=== PATIENT | female | born 1985 | race African-American/Black ===

== ENCOUNTER 2016-10-09 05:30 | Emergency (ER) | payer OTHER ==
[2016-10-09 05:40] VITALS: BP 125/58
[2016-10-09 06:22] LABS: Urine Bacteria 1+ (Absent); Urine Bilirubin Negative (Negative); Urine Glucose Negative (Negative); Urine Nitrite Negative (Negative)
[2016-10-09] MEDS ORDERED: Phenazopyridine TAB* 100 MG PO ONE (06:23)
[2016-10-09] MEDS ORDERED: Sulfamethox/Trimethoprim DS 800/160* TAB PO ONE (06:23)
--- NOTE | 2016-10-09 06:31 | ED ---
Larry Snell Alfonso, scribed for Zach Medrano MD on 10/09/16 at 0540 . GI/ HPI - HPI Summary HPI Summary: This patient is a 31 year old female presenting [place] [facility] c/o an increased urinary frequency since 8 hours ago. The complaint woke her up 6 times tonight. She rates the pain 0/10 in severity. Symptoms aggravated and alleviated by nothing. She denies fever, N/V. The pt states a concern for UTI. - History of Current Complaint Chief Complaint: EDUrogenitalProblems Stated Complaint: FREQUENT URINATION Hx Obtained From: Patient Onset/Duration: Started Hours Ago - 8 hours, Still Present Timing: Constant Severity: Mild Current Severity: Mild Pain Intensity: 0 Associated Signs and Symptoms: Positive: UTI Symptoms - increased urinary frequency. Negative: Nausea, Vomiting, Fever Aggravating Factor(s): Nothing Alleviating Factor(s): Nothing - Allergy/Home Medications Allergies/Adverse Reactions: Allergies Allergy/AdvReac Type Severity Reaction Status Date / Time Latex Allergy Intermediate Rash Verified 05/05/16 12:26 PMH/Surg Hx/FS Hx/Imm Hx Endocrine/Hematology History: Denies: Hx Diabetes Cardiovascular History: Denies: Hx Hypertension, Hx Pacemaker/ICD History: Denies: Hx Renal Disease Sensory History: Denies: Hx Hearing Aid Psychiatric History: Denies: Hx Panic Disorder Infectious Disease History: Denies: Traveled Outside the [place] in Last 30 Days - Family History Known Family History: Negative: Cardiac Disease, Hypertension, Diabetes - Social History Alcohol Use: Rare Substance Use Type: Reports: None Smoking Status (MU): Light Every Day Tobacco Smoker Review of Systems Negative: Fever Negative: Vomiting, Nausea Positive: frequency - Increased All Other Systems Reviewed And Are Negative: Yes Physical Exam Triage Information Reviewed: Yes Vital Signs On Initial Exam: Initial Vitals Temp Pulse Resp BP Pulse Ox 97 F 89 18 132/70 97 10/09/16 05:31 10/09/16 05:31 10/09/16 05:31 10/09/16 05:31 10/09/16 05:31 Vital Signs Reviewed: Yes Appearance: Positive: Well-Appearing, No Pain Distress Skin: Positive: Warm Head/Face: Positive: Normal Head/Face Inspection ENT: Positive: Hearing grossly normal Neck: Positive: Supple, Nontender Respiratory/Lung Sounds: Positive: Clear to Auscultation, Breath Sounds Present Cardiovascular: Positive: RRR Abdomen Description: Positive: Nontender, No Organomegaly, Soft. Negative: CVA Tenderness (R), CVA Tenderness (L) Bowel Sounds: Positive: Present Musculoskeletal: Positive: Strength/ROM Intact Neurological: Positive: Alert, Oriented to Person Place, Time, Normal Gait Psychiatric: Positive: Affect/Mood Appropriate Diagnostics - Vital Signs Vital Signs Temp Pulse Resp BP Pulse Ox 10/09/16 05:31 97 F 89 18 132/70 97 - Laboratory Lab Results: Lab Results 10/09/16 Range/Units 05:45 Urine Color Yellow Urine Appearance Cloudy Urine pH 5.0 (5-9) Ur Specific [place] 1.027 (1.010-1.030) Urine Protein 2+(100 mg/dl) H (Negative) Urine Ketones 1+ H (Negative) Urine Blood 2+ H (Negative) Urine Nitrate Negative (Negative) Urine Bilirubin Negative (Negative) Urine Urobilinogen Negative (Negative) Ur Leukocyte Esterase 3+ H (Negative) Urine WBC (Auto) 3+(>20/hpf) H (Absent) Urine RBC (Auto) 3+(>10/hpf) H (Absent) Ur Squamous Epith Cells Present H (Absent) Urine Bacteria 1+ H (Absent) Urine Glucose Negative (Negative) Urine Test Pending Lab Statement: Any lab studies that have been ordered have been reviewed, and results considered in the medical decision making process. Re-Evaluation - Re-Evaluation First Eval Re-Evaluation Time: 06:30 Comment: results d/w pt GIGU Course/Dx - Diagnoses Provider Diagnoses: UTI (urinary tract infection) Discharge - Discharge Plan Condition: Stable Disposition: HOME Prescriptions: Phenazopyridine 200 mg (NF) [Pyridium 200 MG tab] 200 mg PO TID #5 tab Sulfamethox/Trimethoprim DS* [Bactrim DS 800/160 TAB*] 1 tab PO BID #14 tab Patient Education Materials: Urinary Tract Infection in Women (ED) Referrals: Fabian Ibarra MD [Primary Care Provider] - 1 Week The documentation as recorded by the Larry prieto Alfonso accurately reflects the service I personally performed and the decisions made by me, Zach Medrano MD.
[2016-10-09] MEDS ORDERED: Phenazopyridine TAB* 100 MG ONE (06:32)
[2016-10-09 06:50] LABS: Manual Entry Verification ROB0080; UR Preg Internal Control QC Line Present
== END 2016-10-09 06:42 | disposition home or self-care (01) ==
LOC: ED 05:30
DX: N39.0 Urinary tract infection, site not specified (principal); F17.210 Nicotine dependence, cigarettes, uncomplicated
CPT/HCPCS: 81003; 81015; 81025; 87086; 99283; A9270-GY

== ENCOUNTER 2016-12-25 07:57 | Emergency (ER) | payer OTHER ==
[2016-12-25] MEDS ORDERED: Ondansetron INJ* 2 MG/ML VIAL IV ONE (09:11)
[2016-12-25] MEDS ORDERED: NS 0.9% 1000 ML* 1,000 ML IV ONE (09:11)
[2016-12-25 09:33] LABS: Hematocrit 38 % (35-47); Hemoglobin 12.7 g/dl (12.0-16.0); Mean Corpuscular HGB Conc 33 g/dl (31-36); Mean Corpuscular Hemoglobin 28 pg (27-31); Mean Corpuscular Volume 85 fL (80-97); Mean Platelet Volume 9 um3 (7.4-10.4); Red Blood Count 4.48 10^6/ul (4.0-5.4); Red Cell Distribution Width 17 % (10.5-15); White Blood Count 7.2 10^3/ul (3.5-10.8)
[2016-12-25 09:52] LABS: BUN/Creatinine Ratio 6.6 (8-20); C Reactive Protein 10.55 mg/L (< 5.00); Calcium 9.4 mg/dL (8.6-10.3); EGFR African American 149.1 (>60); Globulin 3.7 g/dL (2-4); Potassium 3.6 mmol/L (3.5-5.0); Total Bilirubin 0.7 mg/dL (0.2-1.0); Total Protein 7.7 g/dL (6.4-8.9)
--- NOTE | 2016-12-25 12:23 | RAD ---
HISTORY: Cramping and weight vaginal discharge in a female COMPARISONS: None from this TECHNIQUE: Multiple transverse and longitudinal ultrasound images were obtained of the pelvis using grayscale, color flow, spectral and M-mode sonographic imaging. FINDINGS: UTERUS: The uterus is normal in shape, size, contour, and echotexture. GESTATION: There is a single live intrauterine gestation. The crown-rump length measures 1.5 cm yielding a gestational age of 7 weeks and 6 days. The mean gestational sac diameter measures 3.4 centimeters yielding a gestational age of 8 weeks and 6 days. cardiac motion is detected at a rate of 155 beats per minute. There is a small amount of subchorionic fluid along the superior and inferior margins of the gestational sac measuring up to 5 mm in width. CUL-DE-SAC: There is no free fluid within the cul-de-sac. RIGHT OVARY: The right ovary measures 2.1 x 1.3 x 2.5 cm. LEFT OVARY: The left ovary measures 2.8 x 2.1 x 3.7 cm. Within the left ovary there is a mostly anechoic and avascular structure measuring 2.8 cm in greatest dimension most consistent with a corpus luteum. IMPRESSION: Single live intrauterine gestation with a crown-rump length yielding a gestational age of 7 weeks and 6 days. Although the heart rate is measured at 155 bpm, the marine insurance claim examiner noted absence of movement in the course of the examination. There is a small amount of subchorionic fluid measuring up to 5 mm in diameter.
--- NOTE | 2016-12-25 15:14 | ED ---
Ranulfo Snell Nikita, scribed for Jay Saab MD on 12/25/16 at 0848 . Complex/Multi-Sys Presentation - HPI Summary HPI Summary: This patient is a 31 year old F presenting to ED with a chief complaint of nausea and vomiting since 2 weeks ago. Pt is currently 6 weeks with her 3rd child. The CC is described as cramping. The patient rates the pain 6/10 in severity. Symptoms aggravated by certain odors. Symptoms alleviated by nothing. Patient reports dry heaving, suprapubic abdominal pain, and discharge ( milky since 3 days ago). Pt reports having a miscarriage (1st trimester had d& c after) and 2 surgical abortions. - History Of Current Complaint Chief Complaint: EDNauseaVomitDiarrh Time Seen by Provider: 12/25/16 08:33 Hx Obtained From: Patient Onset/Duration: Sudden Onset, Lasting Weeks - 2 weeks ago, Still Present Timing: Constant Severity Currently: Moderate - 6/10 Severity Initially: Moderate Aggravating Factor(s): certain odors Alleviating Factor(s): nothing Associated Signs And Symptoms: Positive: Other - CC is described as cramping. Patient reports dry heaving, suprapubic abdominal pain, and discharge (milky since 3 days ago). - Allergies/Home Medications Allergies/Adverse Reactions: Allergies Allergy/AdvReac Type Severity Reaction Status Date / Time Latex Allergy Intermediate Rash Verified 12/25/16 08:06 Home Medications: Home Medications NK [No Home Medications Reported] 12/25/16 [History Confirmed 12/25/16] PMH/Surg Hx/FS Hx/Imm Hx Endocrine/Hematology History: Denies: Hx Diabetes Cardiovascular History: Denies: Hx Hypertension, Hx Pacemaker/ICD History: Denies: Hx Renal Disease Sensory History: Denies: Hx Hearing Aid Psychiatric History: Denies: Hx Panic Disorder Infectious Disease History: No Infectious Disease History: Denies: Traveled Outside the [place] in Last 30 Days - Family History Known Family History: Negative: Cardiac Disease, Hypertension, Diabetes - Social History Alcohol Use: None Alcohol Amount: not now that she is with 3rd baby Substance Use Type: Reports: None Smoking Status (MU): Former Smoker Review of Systems Positive: Abdominal Pain - suprapubic , Vomiting, Nausea, Other - Dry heaving Positive: discharge - milky since 3 days ago All Other Systems Reviewed And Are Negative: Yes Physical Exam Triage Information Reviewed: Yes Vital Signs On Initial Exam: Initial Vitals Temp Pulse Resp BP Pulse Ox 97.8 F 82 16 139/66 100 12/25/16 08:02 12/25/16 08:02 12/25/16 08:02 12/25/16 08:02 12/25/16 08:02 Vital Signs Reviewed: Yes Appearance: Positive: Well-Appearing, No Pain Distress Skin: Positive: Warm, Skin Color Reflects Adequate Perfusion, Dry Head/Face: Positive: Normal Head/Face Inspection Eyes: Positive: Normal ENT: Positive: Normal ENT inspection Neck: Positive: Supple, Nontender Respiratory/Lung Sounds: Positive: Clear to Auscultation, Breath Sounds Present Cardiovascular: Positive: RRR Abdomen Description: Positive: Soft, Other: - Mild suprapubic tenderness Bowel Sounds: Positive: Present Musculoskeletal: Positive: Normal Neurological: Positive: Normal, Sensory/Motor Intact, Alert, Oriented to Person Place, Time, CN Intact II-III Psychiatric: Positive: Affect/Mood Appropriate Diagnostics - Vital Signs Vital Signs Temp Pulse Resp BP Pulse Ox 12/25/16 08:17 79 99 12/25/16 08:16 138/71 12/25/16 08:02 97.8 F 82 16 139/66 100 - Laboratory Lab Results: Lab Results 12/25/16 12/25/16 12/25/16 Range/Units 09:16 09:16 09:16 WBC 7.2 (3.5-10.8) 10^3/ul RBC 4.48 (4.0-5.4) 10^6/ul Hgb 12.7 (12.0-16.0) g/dl Hct 38 (35-47) % MCV 85 (80-97) fL MCH 28 (27-31) pg MCHC 33 (31-36) g/dl RDW 17 H (10.5-15) % Plt Count 288 (150-450) 10^3/ul MPV 9 (7.4-10.4) um3 Neut % (Auto) 62.0 (38-83) % Lymph % (Auto) 29.6 (25-47) % Grant % (Auto) 7.2 (1-9) % Eos % (Auto) 0.4 (0-6) % Baso % (Auto) 0.8 (0-2) % Absolute Neuts (auto) 4.5 (1.5-7.7) 10^3/ul Absolute Lymphs (auto) 2.1 (1.0-4.8) 10^3/ul Absolute Monos (auto) 0.5 (0-0.8) 10^3/ul Absolute Eos (auto) 0 (0-0.6) 10^3/ul Absolute Basos (auto) 0.1 (0-0.2) 10^3/ul Absolute Nucleated RBC 0 10^3/ul Nucleated RBC % 0 Sodium 135 (133-145) mmol/L Potassium 3.6 (3.5-5.0) mmol/L Chloride 105 (101-111) mmol/L Carbon Dioxide 23 (22-32) mmol/L Anion Gap 7 (2-11) mmol/L BUN 4 L (6-24) mg/dL Creatinine 0.61 (0.51-0.95) mg/dL Est GFR ( Amer) 149.1 (>60) Est GFR (Non-Af Amer) 116.0 (>60) BUN/Creatinine Ratio 6.6 L (8-20) Glucose 89 (70-100) mg/dL Lactic Acid 0.8 (0.5-2.0) mmol/L Calcium 9.4 (8.6-10.3) mg/dL Total Bilirubin 0.70 (0.2-1.0) mg/dL AST 15 (13-39) U/L ALT 5 L (7-52) U/L Alkaline Phosphatase 82 (34-104) U/L C-Reactive Protein 10.55 H (< 5.00) mg/L Total Protein 7.7 (6.4-8.9) g/dL Albumin 4.0 (3.2-5.2) g/dL Globulin 3.7 (2-4) g/dL Albumin/Globulin Ratio 1.1 (1-3) Beta HCG, Quant 512469.00 mIU/mL Result Diagrams: 12/25/16 09:16 12/25/16 09:16 Lab Statement: Any lab studies that have been ordered have been reviewed, and results considered in the medical decision making process. - Ultrasound No standard instances Ultrasound Interpretation Completed By: Radiologist - US: Single live intrauterine gestation with a crown-rump length yielding a gestational age of 7 weeks and 6 days. Although the heart rate is measured at 155 bpm, the molder machine tender noted absence of movement in the course of the examination. There is a small amount of subchorionic fluid measuring up to 5 mm in diameter. ED physician has reviewed this radiology report and agrees. Re-Evaluation - Re-Evaluation First Eval Re-Evaluation Time: 13:41 Comment: Discussed with pt about discharge plan and plan to keep pt's appointment with OBGYN. Complex Multi-Symp Course/Dx Course Of Treatment: Ms. Gracia presented with the major concern of vomiting and also concerned with mild suprapubic pain and possibly some D/C. She improved a lot with zofran and an U/S showed a 7 week IUP with FHT's 150's. She preferred keeping her discharge planner appt. tuesday for any further W/U. - Diagnoses Provider Diagnoses: Nausea of Discharge - Discharge Plan Condition: Stable Disposition: HOME Patient Education Materials: Nausea and Vomiting in (ED) Referrals: Hernandez George MD [Medical Doctor] - (Follow up with appointment.) The documentation as recorded by the Ranulfo prieto Nikita accurately reflects the service I personally performed and the decisions made by , Jay Saab MD.
[2016-12-25 15:56] VITALS: BP 112/74
== END 2016-12-25 15:25 | disposition home or self-care (01) ==
LOC: ED 07:57
DX: O26.891 Other specified pregnancy related conditions, first trimester (principal); R10.9 Unspecified abdominal pain; Z3A.01 Less than 8 weeks gestation of pregnancy; R11.2 Nausea with vomiting, unspecified; Z87.891 Personal history of nicotine dependence
CPT/HCPCS: 36415; 76801; 80053; 83605; 84702; 85025; 86140; 99284; J2405

== ENCOUNTER 2017-01-22 08:10 | Emergency (ER) | payer OTHER ==
[2017-01-22 09:12] LABS: Hematocrit 36 % (35-47); Hemoglobin 12.2 g/dl (12.0-16.0); Mean Corpuscular HGB Conc 34 g/dl (31-36); Mean Corpuscular Hemoglobin 29 pg (27-31); Mean Corpuscular Volume 84 fL (80-97); Mean Platelet Volume 8 um3 (7.4-10.4); Red Blood Count 4.25 10^6/ul (4.0-5.4); Red Cell Distribution Width 16 % (10.5-15); White Blood Count 7.8 10^3/ul (3.5-10.8)
[2017-01-22 09:28] LABS: Albumin 3.5 g/dL (3.2-5.2); BUN/Creatinine Ratio 6.8 (8-20); Calcium 8.7 mg/dL (8.6-10.3); EGFR Non-African American 120.5 (>60); Globulin 3.5 g/dL (2-4); Potassium 3.7 mmol/L (3.5-5.0); Total Bilirubin 0.5 mg/dL (0.2-1.0)
[2017-01-22] MEDS ORDERED: Metoclopramide IV* 5 MG/ML 2 ML VIAL IV SLOW PU ONE (10:09)
[2017-01-22] MEDS ORDERED: NS 0.9% 1000 ML* 1,000 ML IV ONE (10:09)
[2017-01-22 10:33] LABS: Urine Bilirubin Negative (Negative); Urine Glucose Negative (Negative); Urine Nitrite Negative (Negative)
[2017-01-22] MEDS ORDERED: PROCHLORPERAZINE INJ 5 MG/ML 2 ML VIAL IV ONE (13:00)
[2017-01-22 16:16] VITALS: BP 121/56
--- NOTE | 2017-01-28 12:30 | ED ---
Osorio Snell SooYoung, scribed for Pio Lao MD on 01/22/17 at 0906 . Headache - HPI Summary HPI Summary: A 31 y/o F who is 12 weeks (G3) presents to ED with c/o constant, worsening POLLOCK onset yesterday AM. Pain wakes her from sleep Associated sx: n/v, photophobia, sensitivity to sound. Denies fever, chills, head trauma. Prev episodes of POLLOCK during . She uses peppermint essential oil to help with the POLLOCK, but it did not help this time. - History Of Current Complaint Chief Complaint: EDHeadache Stated Complaint: HEADACHE 12 WEEKS PREG Hx Obtained From: Patient Onset/Duration: Gradual Onset, Still Present Timing: Constant, Days - onset yesterday AM Aggravating Factor: Bright Lights, Other - sounds Associated Signs And Symptoms: Nausea, Vomiting, Other (Noted In Comments) - photophobia, sound sensitivity - Allergies/Home Medications Allergies/Adverse Reactions: Allergies Allergy/AdvReac Type Severity Reaction Status Date / Time Latex Allergy Intermediate Rash Verified 01/22/17 08:27 Home Medications: Home Medications Acetaminophen TAB* [Tylenol TAB*] 500 mg PO .ONCE 01/22/17 [History Confirmed 01/22/17] PMH/Surg Hx/FS Hx/Imm Hx Previously Healthy: Yes Endocrine/Hematology History: Denies: Hx Diabetes Cardiovascular History: Denies: Hx Hypertension, Hx Pacemaker/ICD History: Denies: Hx Renal Disease Sensory History: Denies: Hx Hearing Aid Psychiatric History: Denies: Hx Panic Disorder Infectious Disease History: Yes Infectious Disease History: Denies: Traveled Outside the [place] in Last 30 Days - Family History Known Family History: Positive: None Negative: Cardiac Disease, Hypertension, Diabetes - Social History Occupation: Employed Full-time Lives: With Family Alcohol Use: None Alcohol Amount: not now that she is with 3rd baby Hx Substance Use: No Substance Use Type: Reports: None Hx Tobacco Use: Yes Smoking Status (MU): Former Smoker Review of Systems Negative: Fever, Chills Positive: Photophobia. Negative: Erythema Positive: Other - sensitivity to sound. Negative: Sore Throat Negative: Chest Pain Negative: Shortness Of Breath, Cough Positive: Vomiting, Nausea. Negative: Abdominal Pain Positive: other - . Negative: dysuria, hematuria Negative: Myalgia, Edema Negative: Rash Neurological: Other - neg: dizziness Positive: Headache All Other Systems Reviewed And Are Negative: Yes Physical Exam - Summary Physical Exam Summary: Constitutional: Well-developed, Well-nourished, Alert. (-) Distressed Skin: Warm, Dry HENT: Normocephalic; Atraumatic Eyes: Conjunctiva normal, Photophobic Neck: Musculoskeletal ROM normal neck. (-) JVD, (-) Stridor, (-) Tracheal deviation Cardio: Rhythm regular, rate normal, Heart sounds normal; Intact distal pulses; The pedal pulses are 2+ and symmetric. Radial pulses are 2+ and symmetric. (-) Murmur Pulmonary/Chest wall: Effort normal. (-) Respiratory distress, (-) Wheezes, (-) Rales Abd: Soft, (-) Tenderness, (-) Distension, (-) Guarding, (-) Rebound Musculoskeletal: (-) Edema Lymph: (-) Cervical adenopathy Neuro: Alert, Oriented x3 Psych: Mood and affect Normal Triage Information Reviewed: Yes Vital Signs On Initial Exam: Initial Vitals Temp Pulse Resp BP Pulse Ox 97.4 F 79 18 142/64 99 01/22/17 08:13 01/22/17 08:13 01/22/17 08:13 01/22/17 08:13 01/22/17 08:13 Vital Signs Reviewed: Yes - [place] Coma Scale Coma Scale Total: 15 Diagnostics - Vital Signs Vital Signs Temp Pulse Resp BP Pulse Ox 01/22/17 08:30 78 119/65 99 01/22/17 08:22 85 98 01/22/17 08:20 133/73 01/22/17 08:13 97.4 F 79 18 142/64 99 - Laboratory Result Diagrams: 01/22/17 09:04 01/22/17 09:04 Lab Statement: Any lab studies that have been ordered have been reviewed, and results considered in the medical decision making process. Re-Evaluation - Re-Evaluation 1 Re-Evaluation Time: 12:59 Change: Unchanged Comment: Pt rates POLLOCK as 5/10, requesting more pain meds. 2 Re-Evaluation Time: 14:56 Change: Improved Comment: Pt states she is feeling better, ready to go home. Headache Course/Dx - Course Course Of Treatment: A 31 y/o F who is 12 weeks (G3) presents to ED with c/o constant, worsening POLLOCK onset yesterday AM. Pain wakes her from sleep Associated sx: n/v, photophobia, sensitivity to sound. Denies fever, chills, head trauma. Prev episodes of POLLOCK during . She uses peppermint essential oil to help with the POLLOCK, but it did not help this time. Pt given Reglan, fluids in ED. Bloodwork is without significant abnormality. UA results are negative for infection. Pt advised to consult with her OB regarding use of peppermint oil. Pt voiced understanding. Upon 2nd reeval, pt feeling better. Will dispo home with Reglan, f/u [facility] in2-3 days. - Diagnoses Provider Diagnoses: migraine during Discharge - Discharge Plan Condition: Stable Disposition: HOME Prescriptions: Metoclopramide TAB* [Reglan TAB*] 10 mg PO Q6H PRN #12 tab PRN Reason: Headache Patient Education Materials: Metoclopramide (By mouth), Migraine Headache (ED) Referrals: Lalo Alfonso MD [Medical Doctor] - 2 Days Additional Instructions: Follow up with your OB-DRAPERY EXAMINER in 2 - 3 days. Please return to the ED if you experience new or worsening symptoms. The documentation as recorded by the Osorio prieto SooYoung accurately reflects the service I personally performed and the decisions made by me, Pio Lao MD.
== END 2017-01-22 16:14 | disposition home or self-care (01) ==
LOC: ED 08:10
DX: G43.909 Migraine, unspecified, not intractable, without status migrainosus (principal); Z34.90 Encounter for supervision of normal pregnancy, unspecified, unspecified trimester; R11.2 Nausea with vomiting, unspecified; H53.149 Visual discomfort, unspecified
CPT/HCPCS: 36415; 80053; 81003; 85027; 96374; 96375; 99284; J0780; J2765

== ENCOUNTER 2017-08-08 01:57 | Inpatient (IN) | payer OTHER ==
[2017-08-08] MEDS ORDERED: Penicillin G Potassium IV* 5,000,000 UNITS in NS 0.9% 100 ML* 100 ML IVPB STA (02:36)
[2017-08-08 02:58] LABS: Hematocrit 35 % (35-47); Hemoglobin 11.8 g/dl (12.0-16.0); Mean Corpuscular HGB Conc 34 g/dl (31-36); Mean Corpuscular Hemoglobin 28 pg (27-31); Mean Corpuscular Volume 84 fL (80-97); Platelet Count 219 10^3/ul (150-450); Red Blood Count 4.18 10^6/ul (4.0-5.4); Red Cell Distribution Width 18 % (10.5-15); White Blood Count 8.9 10^3/ul (3.5-10.8)
--- NOTE | 2017-08-08 03:06 | HP ---
General Information - General Information Maternal Age: 32 Grav: 6 Para: 2 SAB: 1 IEA: 2 Estimated Due Date: 08/07/17 Determined By: Early Ultrasound Gestational Age in Weeks and Days: 40 Weeks and 1 Days Maternal Blood Type and Rh: O Positive - Results this Serology/RPR Result: Non-Reactive Rubella Result: Non-Immune HBsAg Result: Negative HIV Result: Negative GBS Culture Result: Positive Past Medical History Delivery History: Hx Uncomplicated Vaginal Delivery Pertinent Past Medical History: See Records Past Medical History Comment: asthma, D&C x 3, Pertinent Past Surgical History: See Records Past Surgical History Comment: D&C x 3 Pertinent Family History: See Records Family History Comment: niece: down syndrome, sister, sickle cell trait - Antepartal Records Antepartal Records: Reviewed, Complicated by: - BMI 30, GBS positive, HSV II Review of Systems Constitutional: Comfortable CV Complaint: No Respiratory: Shortness of Breath: No Gastrointestinal: No Nausea/Vomiting, Normal Bowel Movement Genitourinary: No Bleeding, No Leaking Fluid Musculoskeletal: Contractions Neurological: No Headache Movement: Normal Exam Allergies/Adverse Reactions: Allergies MS Latex [Latex] Allergy (Intermediate, Verified 05/22/17 11:26) Hives T:98.5, P:104, R:20, 146/69, O2:99% Lab Values - Entire Visit: Laboratory Tests 08/08/17 02:25 WBC 8.9 RBC 4.18 Hgb 11.8 L Hct 35 MCV 84 MCH 28 MCHC 34 RDW 18 H Plt Count 219 MPV 9.0 - Measurements Height: 5 ft 6 in Weight: 207 lb Weight in lbs: 207 Body Mass Index (BMI): 33.4 Pre- Weight: 210 lb Weight Gained This : -3 lbs and 0 ozs - Exam Abdomen: No Upper Quadrant Pain Breast: Breast Exam Deferred CVA: No CVA Tenderness Extremities: No Edema Heart: Normal Rhythm/Heart Sounds HEENT: No Significant Findings Lungs: Clear Bilaterally Rectal: Rectal Exam Deferred Reflexes: DTR 2+ Thyroid: No Thyromegaly - Cervical Exam 5-6cm (Nurse exam) - Abdominal Exam Abdomen Exam: Non-Tender, Fundal Height Consistent with Dates - Membranes Membrane Status: Intact - Ultrasound/Biophysical Profile Ultrasound Status: Not Done EFM Findings - External Monitor Findings Baseline Heart Rate: 125 External Monitor Findings: Accelerations Present, No Pattern of Variable or Late Decelerations, Variability Moderate, Baseline Stable Contractions: Regular, Moderate, 45-90 Seconds Assessment/Plan - Reason for Visit Reason for Visit: Active labor - Obstetrical Risk Factors Obstetrical Risk Factors: GBS Positive - Plan Plan: Active Labor - Date/Time of Admission Date of Admission: 08/08/17 Time of Admission: 02:30
[2017-08-08] MEDS ORDERED: Glycerin ADULT SUPP PR PRN (05:03)
[2017-08-08] MEDS ORDERED: Measles, Mumps,Rubella VACC* 0.5 ML/VIAL SUBCUT ONE (05:03)
[2017-08-08] MEDS ORDERED: Dibucaine 1% 28.35 GM TUBE PR PRN (05:03)
[2017-08-08] MEDS ORDERED: Witch Hazel PAD* JAR TOPICAL PRN (05:03)
[2017-08-08] MEDS: Ibuprofen TAB* 600 MG PO PRN ×3 (05:36→18:04)
[2017-08-08] MEDS ORDERED: Oxytocin in LR* 20 UNITS/1,000 ML BAG IVPB SCH (06:00)
[2017-08-08] MEDS ORDERED: Penicillin G Potassium IV* 2,500,000 UNITS in NS 0.9% 100 ML* 100 ML IVPB SCH (06:30)
[2017-08-08] MEDS ORDERED: Simethicone TAB* 80 MG TAB.CHEW PO SCH (08:30)
[2017-08-08] MEDS: Acetaminophen TAB* 325 MG PO PRN ×3 (09:43→21:16)
[2017-08-08] MEDS: Docusate CAP* 100 MG PO SCH ×3 (09:44→21:16)
[2017-08-08] MEDS: Calcium Carbonate CHEW TAB* 500 MG (TUMS) PO PRN (11:56)
[2017-08-09] MEDS: Ibuprofen TAB* 600 MG PO PRN ×4 (00:31→19:47)
[2017-08-09 07:55] LABS: ABS Basophils 0 10^3/ul (0-0.2); ABS Eosinophils 0.1 10^3/ul (0-0.6); ABS Lymphocytes 2.5 10^3/ul (1.0-4.8); ABS Monocytes 0.7 10^3/ul (0-0.8); ABS Neutrophils 6.3 10^3/ul (1.5-7.7); ABS Nucleated RBC 0 10^3/ul; Eosinophil % 0.8 % (0-6); Hematocrit 33 % (35-47); Hemoglobin 10.8 g/dl (12.0-16.0); Lymphocyte % 25.9 % (25-47); Mean Corpuscular HGB Conc 33 g/dl (31-36); Mean Corpuscular Hemoglobin 28 pg (27-31); Mean Corpuscular Volume 84 fL (80-97); Mean Platelet Volume 8.7 um3 (7.4-10.4); Nucleated Red Blood Cells % 0; Platelet Count 210 10^3/ul (150-450); Red Blood Count 3.87 10^6/ul (4.0-5.4); Red Cell Distribution Width 18 % (10.5-15); White Blood Count 9.6 10^3/ul (3.5-10.8)
[2017-08-09] MEDS: Docusate CAP* 100 MG PO SCH ×3 (08:59→19:47)
[2017-08-09] MEDS ORDERED: Ferrous Gluconate TAB* 324 MG TAB PO SCH (09:00)
[2017-08-09] MEDS: Acetaminophen TAB* 325 MG PO PRN ×3 (09:00→23:07)
[2017-08-09] MEDS: Calcium Carbonate CHEW TAB* 500 MG (TUMS) PO PRN (10:09)
[2017-08-10] MEDS: Ibuprofen TAB* 600 MG PO PRN ×2 (02:05→08:28)
[2017-08-10] MEDS: Acetaminophen TAB* 325 MG PO PRN (06:20)
[2017-08-10] MEDS: Docusate CAP* 100 MG PO SCH (08:28)
[2017-08-10 08:40] VITALS: BP 126/69
== END 2017-08-10 11:36 | disposition home or self-care (01) | DRG 560 ==
LOC: MCHOBOUT 01:57 → MCHOB 02:19
PROVIDERS: ADMIT Midwife; ATTEND Midwife
PROC: 10E0XZZ Delivery of Products of Conception, External Approach (ICD-10-PCS; principal; 2017-08-08)
DX: O48.0 Post-term pregnancy (principal); O99.824 Streptococcus B carrier state complicating childbirth; O99.52 Diseases of the respiratory system complicating childbirth; J45.909 Unspecified asthma, uncomplicated; Z3A.40 40 weeks gestation of pregnancy; Z37.0 Single live birth
CPT/HCPCS: 36415; 85025; 85027; 86850; 86900; 86901; A9270-GY; J2540

== ENCOUNTER 2018-06-05 18:32 | Emergency (ER) | payer OTHER ==
[2018-06-05] MEDS ORDERED: Diazepam TAB(*) 5 MG PO ONE (21:11)
--- NOTE | 2018-06-05 21:49 | ED ---
Back Pain - HPI Summary HPI Summary: Complains of sudden onset left upper back pain after bending over two days ago.. States pain has been getting worse not better. Does not respond to over- the-counter medications. Denies any other pain, injury or symptoms. - History of Current Complaint Chief Complaint: EDBackInjuryPain Stated Complaint: BACK PAIN Time Seen by Provider: 06/05/18 20:19 Hx Obtained From: Patient Onset/Duration: Sudden Onset, Lasting Days Onset/Duration: Started Days Ago Timing: Constant Severity Initially: Severe Severity Currently: Severe Pain Intensity: 9 Pain Scale Used: 0-10 Numeric Character: Dull, Aching, Throbbing Aggravating Symptom(s): Movement Alleviating Symptom(s): Rest, Position Associated Signs And Symptoms: Positive: Negative - Allergies/Home Medications Allergies/Adverse Reactions: Allergies Allergy/AdvReac Type Severity Reaction Status Date / Time latex Allergy Hives Verified 06/05/18 19:07 PMH/Surg Hx/FS Hx/Imm Hx Endocrine/Hematology History: Denies: Hx Diabetes, Hx Thyroid Disease Cardiovascular History: Denies: Hx Hypertension, Hx Pacemaker/ICD Respiratory History: Reports: Hx Asthma History: Denies: Hx Kidney Infection, Hx Renal Disease, Other Problems/Disorders Sensory History: Denies: Hx Hearing Aid Psychiatric History: Denies: Hx Anxiety, Hx Depression, Hx Panic Disorder, Other Psychiatric Issues/Disorders Infectious Disease History: No Infectious Disease History: Denies: Traveled Outside the [place] in Last 30 Days - Family History Known Family History: Positive: None Negative: Cardiac Disease, Hypertension, Diabetes - Social History Alcohol Use: None Alcohol Amount: not now that she is with 3rd baby Hx Substance Use: No Substance Use Type: Reports: Marijuana Substance Use Comment - Amount & Last Used: admits to MJ approx one week ago Hx Tobacco Use: Yes Smoking Status (MU): Former Smoker Review of Systems Constitutional: Negative Eyes: Negative ENT: Negative Cardiovascular: Negative Respiratory: Negative Gastrointestinal: Negative Genitourinary: Negative Musculoskeletal: Other Skin: Negative Neurological: Negative Psychological: Normal All Other Systems Reviewed And Are Negative: Yes Physical Exam - Summary Physical Exam Summary: Pain with palpation of left sternocleidomastoid, left trapezius, left paraspinal muscles of C-spine. Normal movement of left upper extremity. No evidence of ecchymosis, erythema, swelling, tenderness, mass a long spine. Triage Information Reviewed: Yes Vital Signs On Initial Exam: Initial Vitals Temp Pulse Resp BP Pulse Ox 98.5 F 69 16 100/82 98 06/05/18 19:04 06/05/18 19:04 06/05/18 19:04 06/05/18 19:04 06/05/18 19:04 Vital Signs Reviewed: Yes Appearance: Positive: Well-Appearing Skin: Positive: Warm Head/Face: Positive: Normal Head/Face Inspection Eyes: Positive: Normal Neck: Positive: Supple Respiratory/Lung Sounds: Positive: Clear to Auscultation Cardiovascular: Positive: Normal Abdomen Description: Positive: Nontender Musculoskeletal: Positive: Normal Neurological: Positive: Normal Psychiatric: Positive: Normal AVPU Assessment: Alert - Sandro Coma Scale Best Eye Response: 4 - Spontaneous Best Motor Response: 6 - Obeys Commands Best Verbal Response: 5 - Oriented Coma Scale Total: 15 Diagnostics - Vital Signs Vital Signs Temp Pulse Resp BP Pulse Ox 06/05/18 21:18 18 06/05/18 19:04 98.5 F 69 16 100/82 98 - Laboratory Lab Statement: Any lab studies that have been ordered have been reviewed, and results considered in the medical decision making process. Back Pain Course/Dx - Course Course Of Treatment: Complains of sudden onset left upper back pain after bending over two days ago.. States pain has been getting worse not better. Does not respond to [id number] medications. Denies any other pain, injury or symptoms. Physical exam:Pain with palpation of left sternocleidomastoid, left trapezius, left paraspinal muscles of C-spine. Normal movement of left upper extremity. No evidence of ecchymosis, erythema, swelling, tenderness, mass a long spine. Vital signs within normal limits. Patient states symptoms significantly improved with Valium 5 mg by mouth. Rx for Flexeril. - Diagnoses Provider Diagnoses: Muscle spasm Discharge - Sign-Out/Discharge Documenting (check all that apply): Patient Departure Patient Received Moderate/Deep Sedation with Procedure: No - Discharge Plan Condition: Stable Disposition: HOME Prescriptions: Cyclobenzaprine TAB* [Flexeril 10 MG TAB*] 10 mg PO TID PRN 5 Days #15 tab PRN Reason: Pain Ibuprofen 600 mg PO Q6HR 5 Days #20 tablet Patient Education Materials: Muscle Spasm (ED) Referrals: Fabian Ibarra MD [Primary Care Provider] - Additional Instructions: Take flexeril as directed. Heating pad may help. Alternate ibuprofen 600mg and tylenol 650mg every 3 hrs. Return to the ED for any new or worsening symptoms - Billing Disposition and Condition Condition: STABLE Disposition: Home
[2018-06-05 22:12] VITALS: BP 118/66
== END 2018-06-05 22:15 | disposition home or self-care (01) ==
LOC: ED 18:32
DX: O26.899 Other specified pregnancy related conditions, unspecified trimester (principal); M62.838 Other muscle spasm; J45.909 Unspecified asthma, uncomplicated; Z87.891 Personal history of nicotine dependence
CPT/HCPCS: 99282; A9270-GY

== ENCOUNTER 2019-01-20 18:41 | Emergency (ER) | payer OTHER ==
[2019-01-20 19:01] VITALS: BP 133/65
--- NOTE | 2019-01-20 19:07 | UC ---
Throat Pain/Nasal Manjit HPI - HPI Summary HPI Summary: Patient is a 33yo female presenting with nasal congestion x5 days and sore throat x1 day. Patient notes cold symptoms that have started to resolve until today when she started experiencing "throat pain that feels like razor blades." Notes fever at the beginning of the week when cold symptoms first began, but none since. Denies ear pain, sinus tenderness, and cough. Denies SOB and wheezing. Denies abdominal pain, n/v/d. Patient taking mucinex and tylenol cold medication for symptom relief. - History of Current Complaint Stated Complaint: sinus CONGESTION, AND SORE THROAT Hx Obtained From: Patient Hx Last Menstrual Period: 01/20/2019 Severity: Severe Pain Intensity: 8 Pain Scale Used: 0-10 Numeric - Allergies/Home Medications Allergies/Adverse Reactions: Allergies Allergy/AdvReac Type Severity Reaction Status Date / Time latex Allergy Hives Verified 01/20/19 18:58 Home Medications: Home Medications Guaifen/Phenyleph/Acetaminophn [Tylenol Cold Head Congest Cplt] 1 each PO Q12H PRN 01/20/19 [History Confirmed 01/20/19] PMH/Surg Hx/FS Hx/Imm Hx Previously Healthy: Yes - Surgical History Surgical History: None - Family History Known Family History: Positive: None Negative: Cardiac Disease, Hypertension, Diabetes - Social History Alcohol Use: None Alcohol Amount: not now that she is with 3rd baby Substance Use Type: None Substance Use Comment - Amount & Last Used: admits to approx one week ago Smoking Status (MU): Former Smoker - Immunization History Most Recent Influenza Vaccination: 03/04/2017 Most Recent Pneumonia Vaccination: n/a Review of Systems All Other Systems Reviewed And Are Negative: Yes Constitutional: Positive: Fever. Negative: Chills, Fatigue Skin: Positive: Negative Eyes: Positive: Negative ENT: Positive: Sore Throat, Sinus Congestion. Negative: Ear Ache, Nasal Discharge, Sinus Pain/Tenderness Respiratory: Positive: Negative. Negative: Shortness Of Breath, Cough Cardiovascular: Positive: Negative. Negative: Palpitations, Chest Pain Gastrointestinal: Positive: Negative. Negative: Abdominal Pain, Vomiting, Diarrhea, Nausea Genitourinary: Positive: Negative Musculoskeletal: Positive: Negative Neurological: Positive: Headache Physical Exam Triage Information Reviewed: Yes Appearance: No Pain Distress, Well-Nourished, Ill-Appearing Vital Signs: Initial Vital Signs Temp 98.8 F 01/20/19 18:59 Pulse 88 01/20/19 18:59 Resp 18 01/20/19 18:59 BP 133/65 01/20/19 18:59 Pulse Ox 97 01/20/19 18:59 Laboratory Tests 01/20/19 19:18 Group A Strep Rapid Negative Vital Signs Reviewed: Yes Eyes: Positive: Conjunctiva Clear. Negative: Conjunctiva Inflamed, Discharge ENT: Positive: Hearing grossly normal, Pharyngeal erythema, Nasal congestion, Nasal drainage, TMs normal, Tonsillar swelling, Tonsillar exudate, Uvula midline. Negative: TM bulging, TM dull, TM red, Trismus, Muffled voice, Hoarse voice, Sinus tenderness Neck exam: Normal Neck: Positive: Supple, Nontender, No Lymphadenopathy Respiratory Exam: Normal Respiratory: Positive: Lungs clear, Normal breath sounds, No respiratory distress, No accessory muscle use. Negative: Crackles, Rhonchi, Stridor, Wheezing Cardiovascular Exam: Normal Cardiovascular: Positive: RRR Neurological: Positive: Alert Psychological: Positive: Age Appropriate Behavior Skin Exam: Normal Throat Pain/Nasal Course/Dx - Course Course Of Treatment: Discussed negative strep test with patient. Instructed her to continue with otc cough and cold medications as well as using throat lozenges or sprays for symptomatic relief. Instructed to follow up with PCP or return if symptoms persist. Patient voiced understanding and agreed to the treatment plan. - Differential Dx/Diagnosis Provider Diagnosis: Pharyngitis Discharge ED - Sign-Out/Discharge Documenting (check all that apply): Patient Departure All imaging exams completed and their final reports reviewed: No Studies - Discharge Plan Condition: Stable Disposition: HOME Patient Education Materials: Pharyngitis (ED) Forms: *Work Release Referrals: Zayda Graham MD [Primary Care Provider] - If Needed [facility] [Outside] - If Needed Additional Instructions: As discussed, your rapid strep test was negative today. You may continue to take over the counter cough and cold medications for your cold symptoms. You may use lozenges, throat sprays, and nasal sprays as directed for symptomatic relief. You may take ibuprofen as directed for pain relief. Get plenty of rest and fluids. Return or follow up with your primary care doctor if your symptoms do not resolve within 7 days. Go to the emergency room if you experience fever higher than 102, difficulty breathing or swallowing, nausea, or vomiting. - Billing Disposition and Condition Condition: STABLE Disposition: Home
== END 2019-01-20 19:44 | disposition home or self-care (01) ==
LOC: UCEAST 18:41
DX: J02.9 Acute pharyngitis, unspecified (principal); R51 Headache; R09.81 Nasal congestion; Z91.040 Latex allergy status; Z87.891 Personal history of nicotine dependence
CPT/HCPCS: 87651; 99211; G0463

== ENCOUNTER 2019-01-27 09:14 | Emergency (ER) | payer OTHER ==
--- NOTE | 2019-01-27 09:44 | ED ---
Headache - HPI Summary HPI Summary: 33 year old F presenting to [facility] complains of persistent frontal and posterior headache with associated right paracervical neck pain described as pounding since Tuesday01/21/19, worse since this morning. She reports photophobia. She denies nausea, decreased appetite. The patient states the headache is similar to having a hangover. The patient rates the pain 9/10 in severity. Symptoms aggravated by bright lights. Symptoms alleviated by Tylenol 500 mg and ibuprofen. Patient states she has been taking Tylenol 500 mg and ibuprofen, though patient notes that her symptoms do not completely resolve with these. Hx headaches in her adolescent years and after she gave to her son 9 years ago. LNMP 01/20/19. - History Of Current Complaint Chief Complaint: EDHeadache Stated Complaint: HEADACHE PER PT Time Seen by Provider: 01/27/19 09:43 Hx Obtained From: Patient Hx Last Menstrual Period: 01/20/2019 Onset/Duration: Started days ago - 01/21/19, Still Present, Worse Since - this morning Currently Pain Is: Current Pain Scale(0-10)= - 9, Severe Timing: Constant Location of Headache: Frontal, Other: - posterior Aggravating Factor: Bright Lights Allevating Factors: Other (Noted In Comments) - Tylenol 500 mg and ibuprofen Associated Signs And Symptoms: Negative - nausea, decreased appetite, Neck Pain - right paracervical, Other (Noted In Comments) - photophobia - Allergies/Home Medications Allergies/Adverse Reactions: Allergies Allergy/AdvReac Type Severity Reaction Status Date / Time latex Allergy Hives Verified 01/20/19 18:58 PMH/Surg Hx/FS Hx/Imm Hx Endocrine/Hematology History: Denies: Hx Diabetes, Hx Thyroid Disease Cardiovascular History: Denies: Hx Hypertension, Hx Pacemaker/ICD Respiratory History: Reports: Hx Asthma History: Denies: Hx Kidney Infection, Hx Renal Disease, Other Problems/Disorders Sensory History: Reports: Hx Contacts or Glasses Denies: Hx Hearing Aid Opthamlomology History: Reports: Hx Contacts or Glasses Neurological History: Reports: Hx Headaches Psychiatric History: Denies: Hx Anxiety, Hx Depression, Hx Panic Disorder, Other Psychiatric Issues/Disorders - Surgical History Surgery Procedure, Year, and Place: none Infectious Disease History: No Infectious Disease History: Denies: Traveled Outside the [place] in Last 30 Days - Family History Known Family History: Negative: Cardiac Disease, Hypertension, Diabetes - Social History Alcohol Use: Occasionally Hx Substance Use: Yes Substance Use Comment - Amount & Last Used: admits to MJ approx one week ago Hx Tobacco Use: Yes Smoking Status (MU): Former Smoker Review of Systems Positive: Photophobia Gastrointestinal: Negative - decreased appetite Negative: Nausea Positive: Other - right paracervical neck pain Positive: Headache All Other Systems Reviewed And Are Negative: Yes Physical Exam - Summary Physical Exam Summary: Appearance: The patient is well-nourished in no acute distress and in no acute pain. Skin: The skin is warm and dry, and skin color reflects adequate perfusion. HEENT: The head is normocephalic and atraumatic. The pupils are equal and reactive. The conjunctivae are clear and without drainage. Nares are patent and without drainage. Mouth reveals moist mucous membranes, and the throat is without erythema and exudate. The external ears are intact. The ear canals are patent and without drainage. The tympanic membranes are intact. Neck: There is mild tenderness to right paracervical neck. The neck is supple with full range of motion. There are no carotid bruits. There is no neck vein distension. Respiratory: Chest is non-tender. Lungs are clear to auscultation and breath sounds are symmetrical and equal. Cardiovascular: Heart is regular rate and rhythm. There is no murmur or rub auscultated. There is no peripheral edema and pulses are symmetrical and equal. Abdomen: The abdomen is soft and non-tender. There are normal bowel sounds heard in all four quadrants and there is no organomegaly palpated. Musculoskeletal: There is no back tenderness noted. Extremities are non-tender with full range of motion. There is good capillary refill. There is no peripheral edema or calf tenderness elicited. Neurological: Patient is alert and oriented to person, place and time. The patient has symmetrical motor strength in all four extremities. Cranial nerves are grossly intact. Deep tendon reflexes are symmetrical and equal in all four extremities. Psychiatric: The patient has an appropriate affect and does not exhibit any anxiety or depression. Triage Information Reviewed: Yes Vital Signs On Initial Exam: Initial Vitals Temp Pulse Resp BP Pulse Ox 97.0 F 90 16 131/70 98 01/27/19 09:16 01/27/19 09:16 01/27/19 09:16 01/27/19 09:16 01/27/19 09:16 Vital Signs Reviewed: Yes Procedures - Sedation Patient Received Moderate/Deep Sedation with Procedure: No Diagnostics - Vital Signs Vital Signs Temp Pulse Resp BP Pulse Ox 01/27/19 09:16 97.0 F 90 16 131/70 98 - Laboratory Lab Statement: Any lab studies that have been ordered have been reviewed, and results considered in the medical decision making process. Re-Evaluation - Re-Evaluation First Eval Re-Evaluation Time: 13:15 Change: Improved Comment: patient feels better and would like to go home. she is agreeable to discharge Headache Course/Dx - Course Course Of Treatment: Ms. Gracia presents with a left sided POLLOCK for several days. She had a history of POLLOCK's but hasn't had one for many years. She was nontoxic in appearance with stable vitals. There was no meningismus. She was given a 'migraine cocktail' of ketorolac, diphenhydramine, metaclopromide and NS. I checked on her a couple times and she was sleeping. When she woke, she reported significant improvement. - Diagnoses Provider Diagnoses: Headache Discharge ED - Sign-Out/Discharge Documenting (check all that apply): Patient Departure - Discharge - Discharge Plan Condition: Stable Disposition: HOME Patient Education Materials: General Headache (ED) Referrals: Zayda Graham MD [Primary Care Provider] - 2 Days Additional Instructions: Follow up with your primary care provider in 2-3 days. Return to the Emergency Department for new or worsening symptoms. - Billing Disposition and Condition Condition: STABLE Disposition: Home - Attestation Statements Document Initiated by Meghana: Yes Documenting Scribe: Kaye Flores Provider For Whom Meghana is Documenting (Include Credential): Jay Saab MD Scribe Attestation: I, Kaye Flores, scribed for Jay Saab MD on 01/27/19 at 1548. Scribe Documentation Reviewed: Yes Provider Attestation: The documentation as recorded by the Kaye prieto accurately reflects the service I personally performed and the decisions made by me, Jay Saab MD Status of Scribtom Document: Viewed
[2019-01-27] MEDS ORDERED: Metoclopramide IV* 5 MG/ML 2 ML VIAL IV ONE (09:59)
[2019-01-27] MEDS ORDERED: NS 0.9% 1000 ML** 1,000 ML IV ONE (09:59)
[2019-01-27] MEDS ORDERED: Ketorolac INJ* 30 MG/ML 1 ML VIAL IV PUSH ONE (09:59)
[2019-01-27] MEDS ORDERED: diPHENhydraMINE IV* 50 MG/ML 1 ml VIAL (BENADRYL) IV ONE (09:59)
[2019-01-27 13:23] VITALS: BP 106/64
== END 2019-01-27 13:17 | disposition home or self-care (01) ==
LOC: ED 09:14
DX: R51 Headache (principal); M54.2 Cervicalgia; H53.149 Visual discomfort, unspecified; Z91.040 Latex allergy status; Z87.891 Personal history of nicotine dependence
CPT/HCPCS: 96361; 96374; 96375; 99282; J1200; J1885; J2765

== ENCOUNTER 2019-06-17 10:48 | Emergency (ER) | payer OTHER ==
[2019-06-17] MEDS ORDERED: Ibuprofen TAB* 600 MG PO ONE (11:24)
[2019-06-17 12:55] VITALS: BP 117/72
--- NOTE | 2019-06-17 13:21 | ED ---
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 States she was intoxicated, fell onto her R side and injured her R cheek and R shoulder. Endorsing pain only to theses areas. States pain in most notably over the R shoulder radiating downward through the upper right arm/ humerus. Sxs are worse with movement and better with rest and adduction of the shoulder and internal rotation. No numbness or tingling. Denies any color or temperature changes. Patient is having pain to the R TMP area upon opening and closing mouth and states the area "clicks." Endorsing 5/10 pain. Has not tried to eat or drink, but states not difficulty with swallowing saliva. Takes no medications. Denies any headache. Denies any visual changes, confusion, memory loss or any LOC. Patient states she did have alcohol on board, however recalls the entire event states she never had any blackouts. Endorses minimal movement of the shoulder d/t pain. - History of Current Complaint Chief Complaint: EDFall Stated Complaint: FELL/JAW AND SIDE PAIN PER PT Time Seen by Provider: 06/17/19 11:12 Hx Obtained From: Patient Hx Last Menstrual Period: 03/22/19 Mechanism Of Injury: Direct Blow, Fall From A Standing Position Onset/Duration: Started Hours Ago Timing: Constant Severity Initially: Moderate Severity Currently: Moderate Pain Location: Shoulder Character: Aching Aggravating Factor(s): Flexion, Extension, Abduction, Adduction Alleviating Factor(s): Rest Associated Signs & Symptoms: Negative: Swelling, Redness, Weakness, Numbness/ Tingling Related History: Dominant Hand Right - Risk Factors Non-Orthopedic Risk Factor: Negative DVT Risk Factors: Negative Septic Arthritis Risk Factor: Negative Compartment Syndrome Risk Factors: Pain - Allergies/Home Medications Allergies/Adverse Reactions: Allergies Allergy/AdvReac Type Severity Reaction Status Date / Time latex Allergy Hives Verified 06/17/19 10:57 Home Medications: Home Medications Oseltamivir CAP* [Tamiflu CAP*] 75 mg PO BID #8 cap 04/28/19 [Rx] PMH/Surg Hx/FS Hx/Imm Hx Previously Healthy: Yes Endocrine/Hematology History: Denies: Hx Diabetes, Hx Thyroid Disease Cardiovascular History: Denies: Hx Hypertension, Hx Pacemaker/ICD Respiratory History: Reports: Hx Asthma History: Denies: Hx Kidney Infection, Hx Renal Disease, Other Problems/Disorders Sensory History: Reports: Hx Contacts or Glasses Denies: Hx Hearing Aid Opthamlomology History: Reports: Hx Contacts or Glasses Neurological History: Reports: Hx Headaches Psychiatric History: Denies: Hx Anxiety, Hx Depression, Hx Panic Disorder, Other Psychiatric Issues/Disorders - Surgical History Surgery Procedure, Year, and Place: none - Immunization History Hx Pertussis Vaccination: No Immunizations Up to Date: Yes Infectious Disease History: No Infectious Disease History: Denies: Traveled Outside the [place] in Last 30 Days - Family History Known Family History: Positive: None, Hypertension, Respiratory Disease Negative: Cardiac Disease, Diabetes - Social History Occupation: Employed Full-time Lives: With Family Alcohol Use: Occasionally Alcohol Amount: not now that she is with 3rd baby Hx Substance Use: Yes Substance Use Type: Reports: Excessive Caffeine Substance Use Comment - Amount & Last Used: admits to [facility]J approx one week ago Hx Tobacco Use: Yes Smoking Status (MU): Former Smoker Review of Systems Negative: Fever, Chills, Fatigue, Skin Diaphoresis Negative: Palpitations, Chest Pain Negative: Shortness Of Breath, Cough Genitourinary: Negative Positive: no symptoms reported, see HPI Positive: Arthralgia - pain to the R shoulder - worse with abduction - unable to abduct past 90 degrees d/t pain - slight tenderness to the clavicle. Negative: Myalgia Skin: Negative All Other Systems Reviewed And Are Negative: Yes Physical Exam Triage Information Reviewed: Yes Vital Signs On Initial Exam: Initial Vitals Temp Pulse Resp BP Pulse Ox 97.8 F 94 18 142/91 97 06/17/19 10:54 06/17/19 10:54 06/17/19 10:54 06/17/19 10:54 06/17/19 10:54 Vital Signs Reviewed: Yes Appearance: Positive: Well-Appearing, Well-Nourished Skin: Positive: Skin Color Reflects Adequate Perfusion, Other - some ecchymosis to the R lateral cheek near TMJ Eyes: Positive: DEEPTI, Conjunctiva Clear Neck: Positive: Supple, No Lymphadenopathy Respiratory/Lung Sounds: Positive: Clear to Auscultation, Breath Sounds Present Cardiovascular: Positive: Pulses are Symmetrical in both Upper and Lower Extremities Musculoskeletal: Positive: Normal, Pain @ - pain to the R shoulder - worse with abduction - unable to abduct past 90 degrees d/t pain - slight tenderness to the clavicle - no deformity noted Neurological: Positive: Speech Normal Psychiatric: Positive: Normal, Affect/Mood Appropriate AVPU Assessment: Alert Procedures - Sedation Patient Received Moderate/Deep Sedation with Procedure: No Diagnostics - Vital Signs Vital Signs Temp Pulse Resp BP Pulse Ox 06/17/19 12:54 98.6 F 71 16 117/72 92 06/17/19 10:54 97.8 F 94 18 142/91 97 - Laboratory Lab Statement: Any lab studies that have been ordered have been reviewed, and results considered in the medical decision making process. Course/Dx - Course Course Of Treatment: This patient is evaluated for right shoulder pain and R TMJ pain s/p fall last night. She is having difficulty with opening and closing her mouth due to pain to the TMJ on the right side. She also endorses a clicking sensation. No apparent dislocation on physical exam. No medrano sign , no hemotumpanym or cephalahematoma. Nares patent. No pain to the maxillary sinuses bilaterally. Patient able to move L upper extremity without pain. No pain to the teeth or signs of trauma. She does have tenderness to the right side of the eye with slight amount of swelling. No eye entrapment. No eye involvement, or visual changes. No evidence of fracture. Patient denies any difficulty with swallowing or breathing. Denies any shortness of breath. Right shoulder has limitations with range of motion of adduction to 90 degrees. Pain to the clavicle, this is mild and pt has no evidence of fracture. No cervical spine tenderness. Patient is able to rotate about the neck without discomfort. She has no pain to the lower extremities or abdomen. Patient is ambulating well. She is given ibuprofen with good relief. This improved her symptoms from an 8/10 to a 3/10. X-ray of the TMJ reveals no acute processes. Xray of the R shoulder: IMPRESSION: SUPERIOR DISPLACEMENT OF THE DISTAL CLAVICLE RELATIVE THE ACROMIUM COULD BE SEEN IN A GRADE 1 AC SEPARATION INJURY. PLEASE CORRELATE TO POINT TENDERNESS AT THE AC JOINT. IF IT WILL INFLUENCE CLINICAL MANAGEMENT, RADIOGRAPHS OF THE BILATERAL ACROMIOCLAVICULAR JOINTS WITH AND WITHOUT HAND WEIGHTS COULD BE OBTAINED TO IDENTIFY ASYMMETRY. Sling given. Patient will f/u with ortho. Note given for work. - Diagnoses Differential Diagnosis/HQI/PQRI: Positive: Contusion, Strain, Sprain Provider Diagnoses: Separation of AC joint Discharge ED - Sign-Out/Discharge Documenting (check all that apply): Patient Departure - Discharge Plan Condition: Stable Disposition: HOME Patient Education Materials: Acromioclavicular Separation (ED) Forms: *Work Release Referrals: Vandana Randhawa MD [Medical Doctor] - 2 Days Zayda Graham MD [Primary Care Provider] - Additional Instructions: You may have an AC joint separation as discussed Call ortho tomorrow morning to get a follow up for this week Continue with sling to the arm until your follow up Out of work at this time Ibuprofen and moist heat to the area - Billing Disposition and Condition Condition: STABLE Disposition: Home - Attestation Statements Provider Attestation: I was available for consult. This patient was seen by the GISSELLE. The patient was not presented to, seen by, or examined by me. Blaine Gant MD
== END 2019-06-17 12:54 | disposition home or self-care (01) ==
LOC: ED 10:48
DX: S43.101A Unspecified dislocation of right acromioclavicular joint, initial encounter (principal); W19.XXXA Unspecified fall, initial encounter; Y92.9 Unspecified place or not applicable; J45.909 Unspecified asthma, uncomplicated; Z87.891 Personal history of nicotine dependence; Z91.040 Latex allergy status
CPT/HCPCS: 70330; 99281; A9270-GY

== ENCOUNTER 2020-06-11 07:01 | Inpatient (IN) ==
[2020-06-11 08:17] LABS: Hematocrit 37 % (35-47); Hemoglobin 12.6 g/dL (12.0-16.0); Mean Corpuscular HGB Conc 34 g/dL (31-36); Mean Corpuscular Hemoglobin 30 pg (27-31); Mean Corpuscular Volume 90 fL (80-97); Mean Platelet Volume 8.8 fL (7.4-10.4); Platelet Count 233 10^3/uL (150-450); Red Blood Count 4.17 10^6 /uL (3.70-4.87); Red Cell Distribution Width 14 % (10-15); White Blood Count 9.6 10^3/uL (3.5-10.8)
[2020-06-11] MEDS ORDERED: Oxytocin in LR 20 UNITS/1,000 ML BAG IVPB ONE (08:27)
[2020-06-11] MEDS ORDERED: Buffered Lidocaine 1% SYRIN 1 ml INTRADERM ONE (08:33)
[2020-06-11] MEDS ORDERED: Lactated Ringers 1000 ml BAG 1,000 ML IV ONE (08:33)
[2020-06-11] MEDS ORDERED: Witch Hazel PAD JAR TOPICAL PRN (08:40)
[2020-06-11] MEDS ORDERED: Glycerin ADULT 2.4 gm SUPP PR PRN (08:40)
[2020-06-11] MEDS ORDERED: Dibucaine 1% OINT 28.35 GM TUBE PR PRN (08:40)
[2020-06-11] MEDS ORDERED: Lactated Ringers 1000 ml BAG 1,000 ML IV SCH ×2 (09:00)
[2020-06-11] MEDS ORDERED: Oxytocin in LR 20 UNITS/1,000 ML BAG IVPB SCH (09:00)
[2020-06-11 12:19] LABS: Urine Benzodiazepine Screen None Detected (None Detect); Urine Cannabinoids Screen Presumptive Positive (None Detect); Urine Opiates Screen None Detected (None Detect)
[2020-06-11] MEDS ORDERED: Measles, Mumps,Rubella VACC 0.5 ML/VIAL SUBCUT ONE (14:45)
[2020-06-12 07:21] LABS: ABS Basophils 0.1 10^3/ul (0-0.2); ABS Eosinophils 0.1 10^3/ul (0-0.6); ABS Lymphocytes 2.4 10^3/ul (1.0-4.8); ABS Monocytes 0.6 10^3/ul (0-0.8); ABS Neutrophils 6.8 10^3/ul (1.5-7.7); Eosinophil % 1.4 %; Hematocrit 36 % (35-47); Hemoglobin 12.2 g/dL (12.0-16.0); Lymphocyte % 23.4 %; Mean Corpuscular HGB Conc 34 g/dL (31-36); Mean Corpuscular Hemoglobin 30 pg (27-31); Mean Corpuscular Volume 90 fL (80-97); Mean Platelet Volume 8.1 fL (7.4-10.4); Platelet Count 216 10^3/uL (150-450); Red Blood Count 4.01 10^6 /uL (3.70-4.87); Red Cell Distribution Width 14 % (10-15); White Blood Count 10.1 10^3/uL (3.5-10.8)
[2020-06-12] MEDS ORDERED: Measles, Mumps,Rubella VACC 0.5 ML/VIAL SUBCUT ONE (13:20)
[2020-06-13 07:34] VITALS: BP 134/61
== END 2020-06-13 11:10 | disposition home or self-care (01) | DRG 560 ==
LOC: MCHOBOUT 07:01 → MCHOB 07:19
PROVIDERS: ADMIT Obstetrics & Gynecology; ATTEND Midwife